=== PATIENT | male | born 1985 | race Two or more races ===

== ENCOUNTER 2021-10-19 08:23 | Emergency (ER) | payer OTHER ==
[~2021-10-19] VITALS: Ht 165.1 cm; Wt 65.8 kg
--- NOTE | 2021-10-19 08:23 | NUR ---
BIB [employer] PT WANTS TESTOSTERONE SHOT, HE RECIVES 200MG EVERY 2 WEEKS. VITALS ARE WITHIN NORMAL LIMITS, NO RESP DISTRESS NOTED.
--- NOTE | 2021-10-19 09:52 | NUR ---
Patient discharged to home in stable condition. Written and verbal after care instructions given. Patient verbalizes understanding of instruction.
[2021-10-19 09:56] VITALS: BP 126/75
== END 2021-10-19 09:59 ==
LOC: ER 08:27
DX: Z02.89 Encounter for other administrative examinations (principal)